=== PATIENT | male | born 1945 | race Caucasian/White ===

== ENCOUNTER 2021-01-09 02:55 | Observation (INO) ==
[2021-01-09 03:43] LABS: ABS Eosinophils 0.1 10^3/ul (0-0.6); ABS Lymphocytes 0.4 10^3/ul (1.0-4.8); ABS Monocytes 0.8 10^3/ul (0-0.8); ABS Neutrophils 7.3 10^3/ul (1.5-7.7); Eosinophil % 1.5 %; Hematocrit 39 % (42-52); Hemoglobin 13.3 g/dL (14.0-18.0); Lymphocyte % 4.5 %; Mean Corpuscular HGB Conc 34 g/dL (31-36); Mean Corpuscular Hemoglobin 33 pg (27-31); Mean Corpuscular Volume 98 fL (80-94); Mean Platelet Volume 7.1 fL (7.4-10.4); Platelet Count 203 10^3/uL (150-450); Red Blood Count 3.98 10^6 /uL (4.18-5.48); Red Cell Distribution Width 15 % (10-15); White Blood Count 8.6 10^3/uL (3.5-10.8)
[2021-01-09] MEDS ORDERED: Ondansetron 4 mg VIAL 2 MG/ML 2 ml VIAL IV PRN (04:34)
[2021-01-09 04:36] LABS: ALT 45 U/L (7-52); Albumin 3.8 g/dL (3.2-5.2); Albumin/Globulin Ratio 1.3 (1-3); Alkaline Phosphatase 111 U/L (35-149); Blood Urea Nitrogen 26 mg/dL (6-24); CO2 Carbon Dioxide 23 mmol/L (22-32); Calcium 8.8 mg/dL (8.6-10.3); Chloride 89 mmol/L (101-111); EGFR African American 70.4 (>60); EGFR Non-African American 58.1 (>60); Globulin 2.9 g/dL (2-4); Glucose 62 mg/dL (70-100); Total Protein 6.7 g/dL (6.4-8.9)
[2021-01-09 04:40] LABS: Anion Gap 6 mmol/L (2-11)
[2021-01-09 04:41] LABS: Sodium 118 mmol/L (135-145)
[2021-01-09] MEDS ORDERED: Dextrose 50% VIAL 50 ml IV PRN (04:43)
[2021-01-09 06:37] LABS: Rapid COVID-19 Molecular Undetected (Undetected)
[2021-01-09] MEDS: Dextrose 50% Syringe 50 ml 25 GM/50 ML SYRINGE PRN ×3 (07:58→15:28)
[2021-01-09] MEDS: Heparin 5000 UNITS/ML 1 mL VIAL SUBCUT SCH ×3 (09:35→21:28)
[2021-01-09 12:27] LABS: Urine Appearance Clear; Urine Bilirubin Negative (Negative); Urine Blood 2+ (Negative); Urine Color Yellow; Urine Glucose 3+(>=500 mg/dL) (Negative); Urine Ketones Negative (Negative); Urine Nitrite Negative (Negative); Urine Protein Negative (Negative); Urine Specific Gravity 1.003 (1.002-1.030); Urine Urobilinogen Negative (Negative)
[2021-01-09 12:35] LABS: Urine Bacteria Absent (Absent); Urine Red Blood Cell 2+(6-10/hpf) (Absent); Urine Squamous Epithelial Cell Present (Absent); Urine White Blood Cell Trace(0-5/hpf) (Absent)
[2021-01-09] MEDS ORDERED: Pneumococcal Vac 23-Polyvalent IM ONE (16:00)
[2021-01-09 18:59] LABS: Calcium 8.6 mg/dL (8.6-10.3); EGFR Non-African American 57.1 (>60); Potassium 4.6 mmol/L (3.5-5.0)
[2021-01-10] MEDS: Heparin 5000 UNITS/ML 1 mL VIAL SUBCUT SCH (05:22)
[2021-01-10 09:57] LABS: Hematocrit 39 % (42-52); Mean Corpuscular HGB Conc 34 g/dL (31-36); Mean Corpuscular Hemoglobin 34 pg (27-31); Mean Corpuscular Volume 99 fL (80-94); Mean Platelet Volume 7.2 fL (7.4-10.4); Platelet Count 168 10^3/uL (150-450); Red Blood Count 3.89 10^6 /uL (4.18-5.48); Red Cell Distribution Width 15 % (10-15); White Blood Count 6.5 10^3/uL (3.5-10.8)
[2021-01-10 10:14] LABS: Calcium 9.1 mg/dL (8.6-10.3); EGFR African American 67.1 (>60); EGFR Non-African American 55.5 (>60); Potassium 4.6 mmol/L (3.5-5.0)
[2021-01-10 10:34] VITALS: BP 93/49
== END 2021-01-10 15:10 | disposition home or self-care (01) ==
LOC: ED 02:55 → INTOOBSV 08:17 → EDHOLD 08:17 → MEDTELE 08:31
PROVIDERS: ADMIT Internal Medicine; ATTEND Internal Medicine